=== PATIENT | female | born 1945 | race Caucasian/White ===

== ENCOUNTER 2023-12-14 06:46 | Emergency (ER) | payer MEDICARE, BC ==
[~2023-12-14] VITALS: Ht 160 cm; Wt 81.6 kg
[2023-12-14] MEDS ORDERED: IOHEXOL-300 100 ML VIAL IV ONE (08:04)
[2023-12-14] MEDS ORDERED: IV NS 0.9% 250 ML IV ONE (08:05)
[2023-12-14] MEDS ORDERED: CT SWABBABLE VALVE TRANS SET 1 EA INFUS.SET MC ONE (08:05)
[2023-12-14] MEDS ORDERED: MORPHINE SULFATE INJ 4 MG/ML DISP.SYRIN ONE (08:05)
[2023-12-14] MEDS: MORPHINE SULFATE INJ 2 MG/ML DISP.SYRIN IV ONE ×2 (08:06→17:04)
[2023-12-14 08:07] LABS: EOSINOPHILS # (AUTO) 0.2 K/uL (0.0-0.7); EOSINOPHILS % (AUTO) 2.4 % (0.0-6.0); HEMATOCRIT 27 % (33-45); HEMOGLOBIN 8.2 g/dL (11.5-14.8); LYMPHOCYTES # (AUTO) 1.4 K/uL (0.8-4.8); LYMPHOCYTES % (AUTO) 16.5 % (20.0-44.0); MEAN CORPUSCULAR HEMOGLOBIN 23 PG (26.0-33.0); MEAN CORPUSCULAR HGB CONC 30 g/dl (31.0-36.0); MEAN CORPUSCULAR VOLUME 78 fL (82-100); MONOCYTES # (AUTO) 0.8 K/uL (0.1-1.30); NEUTROPHILS # (AUTO) 6.2 K/uL (1.8-8.9); NEUTROPHILS % (AUTO) 72.1 % (43.0-81.0); RED BLOOD CELL COUNT(AUTO) 3.52 MIL/uL (4.0-5.2); RED CELL DISTRIBUTION WIDTH 18.4 % (11.5-15.0); WHITE BLOOD COUNT (AUTO) 8.6 K/uL (4.3-11.0)
[2023-12-14 08:10] LABS: CALCIUM, SERUM 8.6 mg/dL (8.5-10.1); CARBON DIOXIDE 28 mmol/L (21-32); CHLORIDE 108 mmol/L (98-107); CREATININE 0.7 mg/dL (0.6-1.3); GLUCOSE 93 mg/dL (74-106); POTASSIUM 4.1 mmol/L (3.5-5.1); SODIUM SERUM 142 mmol/L (136-145); UREA NITROGEN, BLOOD 11 mg/dL (7-18)
[2023-12-14 08:16] LABS: ALANINE AMINOTRANSFERASE 17 U/L (12-78); ALBUMIN 2.3 g/dL (3.4-5.0); ALKALINE PHOSPHATASE 95 U/L (46-116); ASPARTATE AMINOTRANSFERASE 36 U/L (15-37); BILIRUBIN,DIRECT 0.2 mg/dL (0.0-0.2); BILIRUBIN,TOTAL 0.7 mg/dL (0.2-1.0); TOTAL PROTEIN, SERUM 5.7 g/dL (6.4-8.2)
[2023-12-14 08:17] LABS: INR 0.98 (0.91-1.10); PROTHROMBIN TIME 10.4 SECS (9.2-11.1)
[2023-12-14 08:38] LABS: EOSINOPHILS % (MANUAL) 2 % (0-4); LYMPHOCYTES % (MANUAL) 15 % (16-48); MONOCYTES % (MANUAL) 10 % (0-11.0); NEUTROPHILS % (MANUAL) 73 (42-76); PLATELET ESTIMATE PLATELET CLUMPS SEEN
[2023-12-14 08:39] LABS: ANISOCYTOSIS 1+; HYPOCHROMASIA 2+
[2023-12-14] MEDS ORDERED: MORPHINE SULFATE INJ 2 MG/ML DISP.SYRIN ONE (16:54)
[2023-12-14 21:42] VITALS: BP 142/68; TEMP 97.7; O2SAT 98
== END 2023-12-14 21:42 | disposition home or self-care (01) ==
LOC: ER 06:52
DX: T81.9XXA Unspecified complication of procedure, initial encounter (principal); Z98.890 Other specified postprocedural states; Z88.1 Allergy status to other antibiotic agents; Y83.8 Other surgical procedures as the cause of abnormal reaction of the patient, or of later complication, without mention of misadventure at the time of the procedure; Y82.8 Other medical devices associated with adverse incidents
CPT/HCPCS: 99285; 96374; 73701; 85025; 80048; 80076; 85652; 36415; 85730; 86850; 86140; 96376; 85007; J2270 ×2; J7050; Q9967

== ENCOUNTER 2024-10-25 15:52 | Emergency (ER) | payer MEDICARE, BC ==
[~2024-10-25] VITALS: Ht 157.5 cm; Wt 78.0 kg
[2024-10-25] MEDS ORDERED: KETOROLAC TROMETHAMINE 15 MG/ML VIAL ONE (16:22)
[2024-10-25] MEDS ORDERED: PANTOPRAZOLE 40 MG VIAL ONE (16:22)
[2024-10-25] MEDS ORDERED: ONDANSETRON HCL/PF 4 MG/2 ML VIAL ONE (16:22)
[2024-10-25] MEDS ORDERED: MORPHINE SULFATE INJ 2 MG/ML DISP.SYRIN ONE (16:23)
[2024-10-25 16:32] LABS: PLATELET COUNT (AUTO) 526 K/uL (150-450); RED BLOOD CELL COUNT(AUTO) 4.04 MIL/uL (4.0-5.2); RED CELL DISTRIBUTION WIDTH 15.7 % (11.5-15.0); WHITE BLOOD COUNT (AUTO) 5.9 K/uL (4.3-11.0)
[2024-10-25] MEDS: MORPHINE SULFATE INJ 2 MG/ML DISP.SYRIN IV ONE (16:33)
[2024-10-25] MEDS: IV NS 0.9% 1,000 ML BAG IV ONE (16:33)
[2024-10-25] MEDS: KETOROLAC TROMETHAMINE 15 MG/ML VIAL IV ONE (16:34)
[2024-10-25] MEDS: PANTOPRAZOLE 40 MG VIAL IV ONE (16:34)
[2024-10-25] MEDS: ONDANSETRON HCL/PF 4 MG/2 ML VIAL IVP ONE (16:34)
[2024-10-25 16:39] LABS: CALCIUM, SERUM 9.1 mg/dL (8.5-10.1); CREATININE 0.8 mg/dL (0.6-1.3); SODIUM SERUM 139.0 mmol/L (136-145); UREA NITROGEN, BLOOD 17.0 mg/dL (7-18)
[2024-10-25 16:45] LABS: ASPARTATE AMINOTRANSFERASE 13.0 U/L (15-37); TOTAL PROTEIN, SERUM 7.2 g/dL (6.4-8.2)
[2024-10-25] MEDS ORDERED: IV NS 0.9% 250 ML IV ONE (16:48)
[2024-10-25] MEDS ORDERED: IOHEXOL-300 100 ML VIAL IV ONE (16:48)
[2024-10-25 18:43] LABS: APPEARANCE,URINE CLEAR (CLEAR); BLOOD, URINE NEGATIVE Ery/uL (NEGATIVE); LEUKOCYTE ESTERASE ,URINE NEGATIVE (NEGATIVE); NITRITE, URINE NEGATIVE (NEGATIVE); UGLUCOSE NEGATIVE (NEGATIVE)
[2024-10-25] MEDS ORDERED: AMOX-430 PO (19:00)
[2024-10-25] MEDS ORDERED: AMOX/CLAVULANATE 875 MG TABLET ONE (19:48)
[2024-10-25] MEDS: AMOX/CLAVULANATE 875 MG TABLET PO ONE (19:51)
[2024-10-25] MEDS ORDERED: HYDROCODONE/APAP 5/325MG TABLET ONE (19:58)
[2024-10-25] MEDS: HYDROCODONE/APAP 5/325MG TABLET PO ONE (20:06)
[2024-10-25 20:38] VITALS: BP 130/71; TEMP 98; O2SAT 97
== END 2024-10-25 20:38 ==
LOC: ER 15:55
DX: K57.32 Diverticulitis of large intestine without perforation or abscess without bleeding (principal); R19.7 Diarrhea, unspecified; G89.29 Other chronic pain; Z85.3 Personal history of malignant neoplasm of breast; Z88.2 Allergy status to sulfonamides; Z88.5 Allergy status to narcotic agent; Z90.49 Acquired absence of other specified parts of digestive tract
CPT/HCPCS: 99285; 74177; 96374; 96375; 71045; 96361; 93005; 85025; 80048; 83690; 80076; 81003; 36415; J1885; J2405; J7030; J7050; J2470; J2270; Q9967